=== PATIENT | female | born 1995 | race Caucasian/White ===

== ENCOUNTER 2024-03-29 16:41 | Emergency (ER) | payer MEDICAID ==
[~2024-03-29] VITALS: Ht 167.6 cm; Wt 70.0 kg
[2024-03-29 16:45] VITALS: BP 110/66; PULSE 73; RESP 18; TEMP 98.2; O2SAT 100
[2024-03-29] MEDS ORDERED: LIDOCAINE HCL/EPINEPHRINE 1%-EPI 1:100,000 10ML VIAL INFIL ONE (19:45)
[2024-03-29] MEDS ORDERED: TETANUS, DIPHTHERIA, PERTUSSIS VAC/PF 0.5ML (>10YR OLD) IM ONE (19:45)
[2024-03-29] MEDS ORDERED: CEFAZOLIN 1000MG PREMIX 50 ML IV ONE (21:15)
[2024-03-29] MEDS ORDERED: SULF1TAB48 MT (22:27)
[2024-03-29] MEDS ORDERED: CEFP100T8 MT (22:27)
[2024-03-29] MEDS ORDERED: HYDR-4001 MT (22:28)
[2024-03-29] MEDS ORDERED: IBUP-2028 MT (22:28)
[2024-03-29] MEDS ORDERED: LIDOCAINE HCL/EPINEPHRINE 1%-EPI 1:100,000 10ML VIAL INFIL NR (23:15)
[2024-03-29] MEDS: TETANUS, DIPHTHERIA, PERTUSSIS VAC/PF 0.5ML (>10YR OLD) IM ONE (23:20)
[2024-03-29] MEDS: LIDOCAINE HCL/EPINEPHRINE 1%-EPI 1:100,000 20ML VIAL INFIL NR (23:44)
[2024-03-29] MEDS: CEFAZOLIN 1000MG PREMIX 50ML IV NR (23:44)
== END 2024-03-30 00:06 | disposition home or self-care (01) ==
LOC: ER 16:41
DX: S62.521A Displaced fracture of distal phalanx of right thumb, initial encounter for closed fracture (principal); X58.XXXA Exposure to other specified factors, initial encounter; Y93.9 Activity, unspecified; Y92.89 Other specified places as the place of occurrence of the external cause; Y99.8 Other external cause status
CPT/HCPCS: 73140; 90715; 12001; 90471; 99283; J0690; J3490; Z7610 ×4; J2004

== ENCOUNTER 2024-03-31 15:10 | Emergency (ER) | payer MEDICAID ==
[~2024-03-31] VITALS: Ht 165.1 cm; Wt 68.0 kg
[~2024-03-31 15:10] MED LIST: CEFP100T8 MT; HYDR-4001 MT; IBUP-2028 MT; SULF1TAB48 MT
[2024-03-31 15:15] VITALS: O2SAT 100
[2024-03-31 15:23] VITALS: BP 108/67; PULSE 73; RESP 17; TEMP 97.6; O2SAT 99
== END 2024-03-31 19:04 | disposition home or self-care (01) ==
LOC: ER 15:10
DX: S61.011D Laceration without foreign body of right thumb without damage to nail, subsequent encounter (principal); Z79.899 Other long term (current) drug therapy; X58.XXXD Exposure to other specified factors, subsequent encounter
CPT/HCPCS: 99281

== ENCOUNTER 2024-04-08 10:24 | Emergency (ER) | payer MEDICAID ==
[~2024-04-08] VITALS: Ht 165.1 cm; Wt 66.0 kg
[2024-04-08 10:30] VITALS: O2SAT 100
[2024-04-08 10:34] VITALS: BP 115/74; PULSE 88; RESP 18; TEMP 97.9; O2SAT 100
[2024-04-08] MEDS ORDERED: BO1 TP (11:06)
== END 2024-04-08 11:18 | disposition home or self-care (01) ==
LOC: ER 10:24
DX: S61.012D Laceration without foreign body of left thumb without damage to nail, subsequent encounter (principal); X58.XXXD Exposure to other specified factors, subsequent encounter
CPT/HCPCS: 99282; Z7610